=== PATIENT | female | born 1930 | race African-American/Black ===

== ENCOUNTER → 2019-04-03 | Outpatient (CLI) | payer MEDICARE, OTHER ==
[~2019-04-03] VITALS: Ht 157.5 cm; Wt 88.5 kg
[~2019-04-03] MED LIST: ADENOSINE 74 MG in GIVE UN-DILUTED 0 ML IV STA; AML5T PO; ASPI-378 PO; DULO30CA PO; FURO20TA3 PO; ISOS60TA24 PO; LORA10CA12 PO; LOSA100T22 PO; MEMA1TAB2 PO; METO-159 PO; POTA20TA53 PO; PREG150C PO; RANI150C11 PO
== END | disposition home or self-care (01) ==
LOC: XY 10:13
PROVIDERS: ATTEND Internal Medicine
DX: I25.10 Atherosclerotic heart disease of native coronary artery without angina pectoris (principal); E78.5 Hyperlipidemia, unspecified; I10 Essential (primary) hypertension; F01.50 Vascular dementia, unspecified severity, without behavioral disturbance, psychotic disturbance, mood disturbance, and anxiety; M48.00 Spinal stenosis, site unspecified; R55 Syncope and collapse; R94.31 Abnormal electrocardiogram [ECG] [EKG]; R06.02 Shortness of breath; Z86.79 Personal history of other diseases of the circulatory system; Z95.0 Presence of cardiac pacemaker
CPT/HCPCS: 78452; 93017; A9500; J0153

== ENCOUNTER → 2019-04-09 | Outpatient (CLI) | payer MEDICARE, OTHER ==
[~2019-04-09] MED LIST changes: -ADENOSINE 74 MG in GIVE UN-DILUTED 0 ML IV STA
== END | disposition home or self-care (01) ==
LOC: XY 09:13
PROVIDERS: ATTEND Internal Medicine
DX: I25.10 Atherosclerotic heart disease of native coronary artery without angina pectoris (principal); I10 Essential (primary) hypertension; F01.50 Vascular dementia, unspecified severity, without behavioral disturbance, psychotic disturbance, mood disturbance, and anxiety; M48.00 Spinal stenosis, site unspecified; R55 Syncope and collapse; R94.31 Abnormal electrocardiogram [ECG] [EKG]; E78.5 Hyperlipidemia, unspecified; G45.9 Transient cerebral ischemic attack, unspecified; Z95.0 Presence of cardiac pacemaker; Z86.79 Personal history of other diseases of the circulatory system
CPT/HCPCS: 93886